=== PATIENT | female | born 1995 | race Caucasian/White ===

== ENCOUNTER 2019-11-30 15:11 | Emergency (ER) | payer OTHER ==
[~2019-11-30] VITALS: Ht 172.7 cm; Wt 63.5 kg
== END 2019-11-30 19:26 | disposition home or self-care (01) ==
LOC: ER 15:11
DX: T78.49XA Other allergy, initial encounter (principal); R21 Rash and other nonspecific skin eruption

== ENCOUNTER 2019-12-02 07:48 | Emergency (ER) | payer OTHER ==
[~2019-12-02] VITALS: Ht 172.7 cm; Wt 63.5 kg
== END 2019-12-02 14:29 | disposition home or self-care (01) ==
LOC: ER 07:48
DX: R10.813 Right lower quadrant abdominal tenderness (principal)